=== PATIENT | female | born 1980 | race Caucasian/White ===

== ENCOUNTER 2017-11-30 15:56 | Emergency (ER) | payer SELFPAY ==
[2017-11-30 16:12] VITALS: BMI 25.7
--- NOTE | 2017-11-30 16:13 | PDOC ---
Rapid Medical Evaluation Chief Complaint: Pain Time Seen by Provider: 11/30/17 16:09 Medical Evaluation: 11/30/17 16:09 The patient presents with a chief complaint of: Epigastric pain for one day, especially after eating. Threw up today after eating a figueroa egg and cheese. This has never happened to her. No sick contacts at home. I have performed a brief in-person evaluation of this patient; Pertinent physical exam findings: Epigastric tenderness, RUQ tenderness I have ordered the following: CBC, CMP, PT/INR, Lipase, Abdominal US, UA, urine preg The patient will proceed to the ED for further evaluation. 11/30/17 16:11
[2017-11-30 17:08] LABS: HCG,QUALITATIVE URINE NEGATIVE
[2017-11-30 17:09] LABS: URINE APPEARANCE SLCLOUDY; URINE BILIRUBIN NEGATIVE (NEGATIVE); URINE BLOOD NEGATIVE (NEGATIVE); URINE COLOR YELLOW; URINE GLUCOSE (UA) NEGATIVE (NEGATIVE); URINE KETONE NEGATIVE (NEGATIVE); URINE LEUK ESTERASE TRACE (NEGATIVE); URINE NITRITE NEGATIVE (NEGATIVE); URINE PROTEIN NEGATIVE (NEGATIVE); URINE UROBILINOGEN NEGATIVE mg/dL (0.2-1.0)
[2017-11-30 17:24] LABS: EPI CELLS FEW /HPF (FEW); URINE BACTERIA RARE /hpf (NONE SEEN); URINE MUCUS RARE
[2017-11-30 18:18] LABS: BASO % 0.2 % (0-2.0); EOS % 0.2 % (0-4.5); HEMATOCRIT 38.5 % (32.4-45.2); HEMOGLOBIN 12.9 GM/dL (10.7-15.3); LYMPH % 15.7 % (8-40); MCH 30.6 pg (25.7-33.7); MCHC 33.6 g/dl (32.0-36.0); MEAN CELL VOLUME 91.2 fl (80-96); MEAN PLT VOLUME 8.7 fl (7.5-11.1); MONO % 2.6 % (3.8-10.2); NEUT % 81.3 % (42.8-82.8); PLATELET COUNT 185 K/MM3 (134-434); RBC 4.22 M/mm3 (3.60-5.2); RDW 12.9 % (11.6-15.6); WHITE BLOOD COUNT 8.8 K/mm3 (4.0-10.0)
[2017-11-30 18:23] LABS: INR 1.16 (0.82-1.09); PROTHROMBIN TIME (PATIENT) 13.1 SEC (9.98-11.88)
[2017-11-30 18:44] LABS: ALBUMIN 3.7 g/dl (3.4-5.0); ANION GAP 7 (8-16); BLOOD UREA NITROGEN 12 mg/dL (7-18); CALCIUM 8.5 mg/dL (8.5-10.1); CHLORIDE 104 mmol/L (98-107); CO2 25 mmol/L (21-32); CREATININE 0.5 mg/dL (0.55-1.02); GLUCOSE,RANDOM 96 mg/dL (74-106); SGOT/AST 96 U/L (15-37); SGPT/ALT 140 U/L (12-78); SODIUM 136 mmol/L (136-145)
[2017-11-30 18:46] LABS: ALK PHOS 205 U/L (45-117); TOT PROT 8.8 g/dl (6.4-8.2)
--- NOTE | 2017-11-30 21:33 | PDOC ---
Attending Attestation - Resident Resident Name: David Cuellar - ED Attending Attestation I have performed the following: I have examined & evaluated the patient, The case was reviewed & discussed with the resident, I agree w/resident's findings & plan, Exceptions are as noted - Medical Decision Making 11/30/17 21:33 I, Dr. Nell Youngblood, DO, attest that this document has been prepared under my direction and personally reviewed by me in its entirety. I further attest, that it accurately reflects all work, treatment, procedures and medical decision -making performed by me. 11/30/17 23:10 a/p: 37yo female with epigastric pain and bitter taste in mouth -suspect GERD vs PUD vs Biliary disease -hx of liver bx for elevated LFT in the past -will check labs, RUQ us -nontoxic in appearnace <Nell Youngblood - Last Filed: 11/30/17 23:10> - HPI HPI: 12/01/17 00:53 Patient is a 37 year old female with no significant past medical history who presents to the ED with complaints of epigastric pain that began this morning. Patient reports experiencing sudden upper abdominal pain this morning shortly after eating a figueroa, egg and cheese sandwich. She reports experiencing an episode of vomiting shortly after finishing her sandwich. Patient reports she has been followed for inflamed liver. Patient reports experiencing intermittent bitter taste at the back of her mouth. She states she was prescribed medication for it but state she stopped taking it a year ago when they began to make her face swell. Denies chest pain, SOB. Denies cough. Denies fevers, chills. Denies recent out of state travelling. Denies any other symptoms. Allergies: None Social history: No smoking. No alcohol. No illicit drugs. Surgical history: None PMD: None - Physicial Exam PE: 12/01/17 00:53 GENERAL: +Non toxic appearing Awake, alert, and fully oriented, in no acute distress HEAD: No signs of trauma EYES: PERRLA, EOMI, sclera anicteric, conjunctiva clear ENT: Auricles normal inspection, hearing grossly normal, nares patent, oropharynx clear without exudates. Moist mucosa NECK: Normal ROM, supple, no lymphadenopathy, JVD, or masses LUNGS: Breath sounds equal, clear to auscultation bilaterally. No wheezes, and no crackles HEART: Regular rate and rhythm, normal S1 and S2, no murmurs, rubs or gallops ABDOMEN: +Mild tender in epigastric region. No Upper quadrant tenderness. Soft, normoactive bowel sounds. No guarding, no rebound. No masses EXTREMITIES: Normal range of motion, no edema. No clubbing or cyanosis. No cords, erythema, or tenderness NEUROLOGICAL: Cranial nerves II through XII grossly intact. Normal speech, normal gait SKIN: Warm, Dry, normal turgor, no rashes or lesions noted. - Medical Decision Making 12/01/17 00:53 Documentation prepared by Benigno Mcnair, acting as medical education manager for Nell Youngblood DO, MD/. <Benigno Mcnair - Last Filed: 12/01/17 00:53>
[2017-11-30] MEDS ORDERED: SODIUM CHLORIDE 1,000 ML IV STA (21:38)
[2017-11-30] MEDS ORDERED: FAMOTIDINE IV 20 MG/12 ML VIAL IVPB ONE (21:38)
--- NOTE | 2017-11-30 21:43 | PDOC ---
History of Present Illness - General Chief Complaint: Pain Stated Complaint: VOMITING/DIARRHEA Time Seen by Provider: 11/30/17 16:09 - History of Present Illness Initial Comments: 11/30/17 21:42 Ms. Burton is a 37 yo female w/ pmh of known "liver inflammation" for which she is currently not treated who presents complaining of a 1 day history of burning and epigastric pain. She reports it started this morning after breakfast and that she vomited up her figueroa/egg/cheese sandwich. Vomit was non- bloody. She denies associated nausea. Rates her abdominal pain as 8/10. The patient denies chest pain, shortness of breath, headache and dizziness. Denies fever, chills, nausea, diarrhea and constipation. Denies dysuria, frequency, urgency and hematuria. Allergies: NKDA Past History - Past Medical History Allergies/Adverse Reactions: Allergies Allergy/AdvReac Type Severity Reaction Status Date / Time No Known Allergies Allergy Verified 11/30/17 16:12 COPD: No Other medical history: denies - Suicide/Smoking/Psychosocial Hx Smoking History: Never smoked Information on smoking cessation initiated: No Hx Alcohol Use: No Drug/Substance Use Hx: No Substance Use Type: None Review of Systems - Review of Systems Comments:: 11/30/17 21:44 GENERAL/CONSTITUTIONAL: No fever or chills. No weakness. HEAD, EYES, EARS, NOSE AND THROAT: No change in vision. No ear pain or discharge. No sore throat. CARDIOVASCULAR: No chest pain or shortness of breath RESPIRATORY: No cough, wheezing, or hemoptysis. GASTROINTESTINAL: +Midline epigastric burning pain with 1 episode of vomiting. 8 /10 pain she reports is constant. GENITOURINARY: No dysuria, frequency, or change in urination. MUSCULOSKELETAL: No joint or muscle swelling or pain. No neck or back pain. SKIN: No rash NEUROLOGIC: No headache, vertigo, loss of consciousness, or change in strength/ sensation. ENDOCRINE: No increased thirst. No abnormal weight change HEMATOLOGIC/LYMPHATIC: No anemia, easy bleeding, or history of blood clots. ALLERGIC/IMMUNOLOGIC: No hives or skin allergy. *Physical Exam - Vital Signs Last Vital Signs Temp Pulse Resp BP Pulse Ox 98.6 F 65 18 132/79 100 11/30/17 16:09 11/30/17 16:09 11/30/17 16:09 11/30/17 16:09 11/30/17 16:09 - Physical Exam Comments: 11/30/17 21:45 GENERAL: Awake, alert, and fully oriented, in no acute distress HEAD: No signs of trauma, normocephalic, atraumatic EYES: PERRLA, EOMI, sclera anicteric, conjunctiva clear ENT: Auricles normal inspection, hearing grossly normal, nares patent, oropharynx clear without exudates. Moist mucosa NECK: Normal ROM, supple, no lymphadenopathy, JVD, or masses LUNGS: No distress, speaks full sentences, clear to auscultation bilaterally HEART: Regular rate and rhythm, normal S1 and S2, no murmurs, rubs or gallops, peripheral pulses normal and equal bilaterally. ABDOMEN: Soft, nontender, normoactive bowel sounds. No guarding, no rebound. No masses EXTREMITIES: Normal inspection, Normal range of motion, no edema. No clubbing or cyanosis. NEUROLOGICAL: Cranial nerves II through XII grossly intact. Normal speech, normal gait, no focal sensorimotor deficits SKIN: Warm, Dry, normal turgor, no rashes or lesions noted. ED Treatment Course - LABORATORY CBC & Chemistry Diagram: 11/30/17 17:47 11/30/17 17:47 - ADDITIONAL ORDERS Additional order review: Laboratory Results 11/30/17 11/30/17 11/30/17 17:47 17:47 17:47 PT with INR 13.10 H INR 1.16 H Sodium 136 Potassium 4.0 Chloride 104 Carbon Dioxide 25 Anion Gap 7 L BUN 12 Creatinine 0.5 L Creat Clearance w eGFR > 60 Random Glucose 96 Calcium 8.5 Total Bilirubin 1.0 AST 96 H ALT 140 H Alkaline Phosphatase 205 H Total Protein 8.8 H Albumin 3.7 Lipase 206 Urine Color Urine Appearance Urine pH Ur Specific [place] Urine Protein Urine Glucose (UA) Urine Ketones Urine Blood Urine Nitrite Urine Bilirubin Urine Urobilinogen Ur Leukocyte Esterase Urine WBC (Auto) Urine RBC (Auto) Ur Epithelial Cells Urine Bacteria Urine Mucus Urine HCG, Qual 11/30/17 15:50 PT with INR INR Sodium Potassium Chloride Carbon Dioxide Anion Gap BUN Creatinine Creat Clearance w eGFR Random Glucose Calcium Total Bilirubin AST ALT Alkaline Phosphatase Total Protein Albumin Lipase Urine Color Yellow Urine Appearance Slcloudy Urine pH 5.0 Ur Specific [place] 1.014 Urine Protein Negative Urine Glucose (UA) Negative Urine Ketones Negative Urine Blood Negative Urine Nitrite Negative Urine Bilirubin Negative Urine Urobilinogen Negative Ur Leukocyte Esterase Trace Urine WBC (Auto) 3 Urine RBC (Auto) 1 Ur Epithelial Cells Few Urine Bacteria Rare Urine Mucus Rare Urine HCG, Qual Negative 11/30/17 17:47 RBC 4.22 MCV 91.2 MCHC 33.6 RDW 12.9 MPV 8.7 Neutrophils % 81.3 Lymphocytes % 15.7 Monocytes % 2.6 L Eosinophils % 0.2 Basophils % 0.2 *DC/Admit/Observation/Transfer Diagnosis at time of Disposition: Epigastric pain, Elevated LFTs Gall stone Qualifiers: Cholecystitis presence: without cholecystitis Biliary obstruction: without biliary obstruction Qualified Code(s): K80.20 - Calculus of gallbladder without cholecystitis without obstruction - Discharge Dispostion Disposition: HOME - Referrals Referrals: Donald Moore MD [Staff Physician] - Jaquan Jones MD [Staff Physician] - Kenneth Vides MD [Staff Physician] - - Patient Instructions Printed Discharge Instructions: DI for Epigastric Pain Additional Instructions: Please follow-up with primary care as discussed for further evaluation of liver enzymes. We have also provided information for general surgeons to evaluate your gall stones for elective removal. You can take over the counter preparations for reflux as well as an over the counter proton pump inhibitor. Return to ER if any increase or return of symptoms, fever, chills, or other concerning developments. - Post Discharge Activity
[2017-11-30] MEDS ORDERED: FAMOTIDINE 20 MG/50 ML IVPB 20 MG/50 ML MG IVPB ONE (21:49)
[2017-11-30] MEDS ORDERED: MAG HYDROX/AL HYDROX/SIMETH 355 ML ORAL.SUSP PO ONE (22:45)
[2017-11-30] MEDS ORDERED: LIDOCAINE VISCOUS 2% ORAL/TOP 20 ML UNIT-DOSE CUP MM ONE (22:45)
[2017-12-01] MEDS ORDERED: LIDOCAINE VISCOUS 2% ORAL/TOP 20 ML UNIT-DOSE CUP ONE (00:12)
[2017-12-01] MEDS ORDERED: MAG HYDROX/AL HYDROX/SIMETH 30 ML UNIT-DOSE CUP ONE (00:13)
[2017-12-01 00:57] VITALS: BP 128/72; PULSE 68; TEMP 98.5
== END 2017-12-01 00:57 | disposition home or self-care (01) ==
LOC: JER 15:56
PROC: 3E033GC Introduction of Other Therapeutic Substance into Peripheral Vein, Percutaneous Approach (ICD-10-PCS; principal; 2017-11-30)
DX: K80.20 Calculus of gallbladder without cholecystitis without obstruction (principal); R79.89 Other specified abnormal findings of blood chemistry
CPT/HCPCS: 36415; 76705-TC; 80053; 81003; 81015; 83690; 84703; 85025; 85610; 99282-25

== ENCOUNTER 2022-07-12 16:47 | Inpatient (IN) | payer OTHER ==
[2022-07-12] MEDS ORDERED: SODIUM CHLORIDE 1,000 ML IV STA (17:37)
[2022-07-12] MEDS ORDERED: CEFPODOXIME PROXETIL 100 MG TABLET PO ONE (17:43)
[2022-07-12 19:00] LABS: BASO % 0.4 % (0-2.0); EOS % 1.6 % (0-4.5); HEMATOCRIT 23.5 % (32.4-45.2); HEMOGLOBIN 7.1 GM/dL (10.7-15.3); LYMPH % 13.6 % (8-40); MCHC 30.3 g/dl (32.0-36.0); MEAN CELL VOLUME 65.1 fl (80-96); MONO % 11.3 % (3.8-10.2); NEUT % 73.1 % (42.8-82.8); RBC 3.62 M/mm3 (3.60-5.2); RDW 23.1 % (11.6-15.6); WHITE BLOOD COUNT 7.8 K/mm3 (4.0-10.0)
[2022-07-12 19:15] LABS: MCH 19.7 pg (25.7-33.7)
[2022-07-12 19:19] LABS: CALCIUM 8.2 mg/dL (8.5-10.1)
[2022-07-12 19:20] LABS: ALBUMIN 2.7 g/dl (3.4-5.0)
[2022-07-12 19:23] LABS: CREATININE 0.5 mg/dL (0.55-1.3)
[2022-07-12 19:24] LABS: BILIRUBIN,TOTAL 2.1 mg/dL (0.2-1); TOT PROT 7.4 g/dl (6.4-8.2)
[2022-07-12 19:25] LABS: EPI CELLS 13 /uL (0-25.1); HYALINE CASTS 0 /uL (0-3.1); URINE APPEARANCE CLEAR; URINE BACTERIA 206 /uL (0-1359); URINE BILIRUBIN NEGATIVE (NEGATIVE); URINE COLOR YELLOW; URINE GLUCOSE (UA) NEGATIVE (NEGATIVE); URINE KETONE NEGATIVE (NEGATIVE); URINE LEUK ESTERASE 2+ (NEGATIVE); URINE NITRITE NEGATIVE (NEGATIVE); URINE PROTEIN NEGATIVE (NEGATIVE); URINE RBC 4 /uL (0-23.9); URINE WBC 47 /uL (0-25.8)
[2022-07-12] MEDS ORDERED: POTASSIUM CHLORIDE TABS 20 MEQ TABLET.ER (FP) PO ONE ×2 (19:55→19:59)
[2022-07-12 21:46] LABS: ANISOCYTOSIS 3+; MACROCYTOSIS 0
[2022-07-12 21:59] LABS: MEAN PLT VOLUME 8.7 fl (7.5-11.1); PLATELET COUNT 79 10^3/uL (134-434)
[2022-07-12] MEDS ORDERED: CEFTRIAXONE 1 GM in DEXTROSE 5%-WATER - 100 ML IVPB ONE (23:02)
[2022-07-12] MEDS ORDERED: CEFTRIAXONE 1 GM/50 ML BAG ONE (23:06)
[2022-07-12] MEDS ORDERED: morphine SULFATE 4 MG/ML VIAL IVPUSH ONE (23:32)
[2022-07-12] MEDS ORDERED: METOCLOPRAMIDE HCL INJECTION 10 MG/2 ML VIAL IVPB ONE (23:32)
[2022-07-13] MEDS ORDERED: METOCLOPRAMIDE HCL INJECTION 10 MG/2 ML VIAL ONE (00:08)
[2022-07-13 05:21] VITALS: BMI 23.6
[2022-07-13] MEDS ORDERED: ACETAMINOPHEN 500 MG TABLET (FP) PO PRN (09:20)
[2022-07-13 09:50] LABS: INR 1.47 (0.83-1.09)
[2022-07-13 09:53] LABS: ACTIVATED PTT 31.6 SECONDS (25.2-36.5)
[2022-07-13] MEDS ORDERED: PIPERACILLIN/TAZOB 3.375 GM 3.375 GM in DEXTROSE 5%-WATER - 50 ML IVPB SCH (10:00)
[2022-07-13] MEDS: LACTATED RINGERS SOLUTION 1,000 ML/1,000 ML INFUS.BAG IV SCH (11:13)
[2022-07-13 12:40] LABS: BASO % 1.3 % (0-2.0); EOS % 0.5 % (0-4.5); HEMATOCRIT 21.2 % (32.4-45.2); LYMPH % 17.7 % (8-40); MCHC 30.7 g/dl (32.0-36.0); MEAN CELL VOLUME 64.9 fl (80-96); MEAN PLT VOLUME 8.8 fl (7.5-11.1); MONO % 14.9 % (3.8-10.2); NEUT % 65.6 % (42.8-82.8); PLATELET COUNT 72 10^3/uL (134-434); RBC 3.26 M/mm3 (3.60-5.2); RDW 23.3 % (11.6-15.6); RETICULOCYTES 2.27 % (0.5-1.5); WHITE BLOOD COUNT 5.3 K/mm3 (4.0-10.0)
[2022-07-13 12:43] LABS: ALBUMIN 2.4 g/dl (3.4-5.0); BLOOD UREA NITROGEN 10.3 mg/dL (7-18); CALCIUM 7.6 mg/dL (8.5-10.1); MAGNESIUM 1.9 mg/dL (1.8-2.4); MCH 19.9 pg (25.7-33.7)
[2022-07-13 12:45] LABS: HEMOGLOBIN 6.5 GM/dL (10.7-15.3)
[2022-07-13 12:46] LABS: BILIRUBIN,DIRECT 1.3 mg/dL (0.0-0.2); CREATININE 0.4 mg/dL (0.55-1.3); PHOSPHOROUS 3.1 mg/dL (2.5-4.9)
[2022-07-13 12:47] LABS: BILIRUBIN,TOTAL 1.8 mg/dL (0.2-1); TOT PROT 6.4 g/dl (6.4-8.2)
[2022-07-13] MEDS: PIPERACILLIN/TAZOB 3.375 GM 3.375 GM in DEXTROSE 5%-WATER - 50 ML IVPB SCH (18:20)
[2022-07-13] MEDS: predniSONE 20 MG TABLET (UD) PO SCH (18:29)
[2022-07-13] MEDS: POLYETHYLENE GLYCOL (HEALTHYLAX) 3350 17 GM PACKET PO SCH (22:15)
[2022-07-13] MEDS: URSODIOL 300 MG CAPSULE PO SCH (22:15)
[2022-07-14] MEDS: PIPERACILLIN/TAZOB 3.375 GM 3.375 GM in DEXTROSE 5%-WATER - 50 ML IVPB SCH ×3 (01:31→17:25)
[2022-07-14] MEDS: LACTATED RINGERS SOLUTION 1,000 ML/1,000 ML INFUS.BAG IV SCH ×3 (04:13→15:52)
[2022-07-14] MEDS: URSODIOL 300 MG CAPSULE PO SCH ×3 (05:30→21:15)
[2022-07-14] MEDS: predniSONE 20 MG TABLET (UD) PO SCH (09:37)
[2022-07-14] MEDS: POLYETHYLENE GLYCOL (HEALTHYLAX) 3350 17 GM PACKET PO SCH ×2 (09:38→21:15)
[2022-07-14 10:42] LABS: BASO % 0.2 % (0-2.0); HEMATOCRIT 27.5 % (32.4-45.2); HEMOGLOBIN 8.5 GM/dL (10.7-15.3); INR 1.42 (0.83-1.09); LYMPH % 19.3 % (8-40); MCHC 30.8 g/dl (32.0-36.0); MEAN CELL VOLUME 68.2 fl (80-96); MEAN PLT VOLUME 8.1 fl (7.5-11.1); MONO % 6.8 % (3.8-10.2); NEUT % 73.7 % (42.8-82.8); PLATELET COUNT 84 10^3/uL (134-434); PROTHROMBIN TIME (PATIENT) 16.4 SEC (9.7-13.0); RBC 4.04 M/mm3 (3.60-5.2); RDW 25.6 % (11.6-15.6); WHITE BLOOD COUNT 3.2 K/mm3 (4.0-10.0)
[2022-07-14 11:10] LABS: CALCIUM 8.1 mg/dL (8.5-10.1)
[2022-07-14 11:11] LABS: ALBUMIN 2.4 g/dl (3.4-5.0); BLOOD UREA NITROGEN 9.5 mg/dL (7-18); MAGNESIUM 2.1 mg/dL (1.8-2.4)
[2022-07-14 11:14] LABS: CREATININE 0.5 mg/dL (0.55-1.3)
[2022-07-14 11:15] LABS: BILIRUBIN,TOTAL 2.2 mg/dL (0.2-1); TOT PROT 7.1 g/dl (6.4-8.2)
[2022-07-15] MEDS: PIPERACILLIN/TAZOB 3.375 GM 3.375 GM in DEXTROSE 5%-WATER - 50 ML IVPB SCH ×2 (02:12→09:08)
[2022-07-15] MEDS: URSODIOL 300 MG CAPSULE PO SCH ×2 (05:27→14:26)
[2022-07-15 08:05] LABS: BASO % 0.3 % (0-2.0); EOS % 0.8 % (0-4.5); HEMATOCRIT 24.8 % (32.4-45.2); HEMOGLOBIN 7.6 GM/dL (10.7-15.3); LYMPH % 24.9 % (8-40); MCH 20.8 pg (25.7-33.7); MCHC 30.7 g/dl (32.0-36.0); MEAN CELL VOLUME 67.8 fl (80-96); MEAN PLT VOLUME 8.4 fl (7.5-11.1); MONO % 8.9 % (3.8-10.2); NEUT % 65.1 % (42.8-82.8); PLATELET COUNT 94 10^3/uL (134-434); RBC 3.66 M/mm3 (3.60-5.2); RDW 25.5 % (11.6-15.6); WHITE BLOOD COUNT 6.2 K/mm3 (4.0-10.0)
[2022-07-15 08:27] LABS: CALCIUM 7.7 mg/dL (8.5-10.1)
[2022-07-15 08:28] LABS: ALBUMIN 2.2 g/dl (3.4-5.0); BLOOD UREA NITROGEN 9.6 mg/dL (7-18); MAGNESIUM 1.7 mg/dL (1.8-2.4)
[2022-07-15 08:31] LABS: CREATININE 0.5 mg/dL (0.55-1.3)
[2022-07-15 08:33] LABS: BILIRUBIN,TOTAL 1.3 mg/dL (0.2-1); TOT PROT 6.3 g/dl (6.4-8.2)
[2022-07-15] MEDS ORDERED: MAGNESIUM OXIDE 400 MG TABLET (FP) PO ONE (08:35)
[2022-07-15] MEDS: predniSONE 20 MG TABLET (UD) PO SCH (09:08)
[2022-07-15] MEDS: POLYETHYLENE GLYCOL (HEALTHYLAX) 3350 17 GM PACKET PO SCH (09:08)
[2022-07-15] MEDS ORDERED: POTASSIUM CHLORIDE TABS 20 MEQ TABLET.ER (FP) PO SCH (10:00)
[2022-07-15] MEDS: LACTATED RINGERS SOLUTION 1,000 ML/1,000 ML INFUS.BAG IV SCH ×2 (10:37)
[2022-07-15] MEDS: FERROUS SO4 325 MG TABLET (FP) PO SCH ×2 (12:07→16:53)
[2022-07-15] MEDS ORDERED: metroNIDAZOLE 250 MG TABLET PO SCH (14:00)
[2022-07-15 14:50] VITALS: BP 107/69; PULSE 75; RESP 20; TEMP 98.7
[2022-07-16] MEDS ORDERED: POLYETHYLENE GLYCOL (HEALTHYLAX) 3350 17 GM PACKET PO SCH (10:00)
== END 2022-07-15 16:05 | disposition home or self-care (01) ==
LOC: JER 16:47 → JERBED 22:57 → J7W 07-13 05:09
PROVIDERS: ADMIT Hospitalist; ATTEND Nurse Practitioner Acute Care
PROC: 30233N1 Transfusion of Nonautologous Red Blood Cells into Peripheral Vein, Percutaneous Approach (ICD-10-PCS; principal; 2022-07-13)
DX: K75.4 Autoimmune hepatitis (principal); D69.6 Thrombocytopenia, unspecified; K76.0 Fatty (change of) liver, not elsewhere classified; D50.9 Iron deficiency anemia, unspecified; E87.6 Hypokalemia; N39.0 Urinary tract infection, site not specified; R74.01 Elevation of levels of liver transaminase levels; R79.89 Other specified abnormal findings of blood chemistry
CPT/HCPCS: 36415; 36430; 74177-TC; 76705-TC; 76830-TC; 80053; 81003; 82248; 83010; 83540; 83550; 83615; 83690; 83735; 84100; 84703; 85025; 85045; 85610; 85730; 86140; 86705; 86803; 86850; 86900; 86901; 86922; 87086; 87340; 87517; 99291; 99292; C9803-CS; P9058; Q9967; U0003; U0005